=== PATIENT | female | born 1960 | race Caucasian/White ===

== ENCOUNTER → 2021-02-11 | Outpatient (CLI) | payer OTHER ==
--- NOTE | 2021-02-11 09:31 | RAD ---
EXAM: Pelvis and right hip, 3 views; lumbar spine, 2 views. HISTORY: Pain. COMPARISON: None. FINDINGS: Pelvis and right hip: A frontal view the pelvis and frontal and frog-leg views of the right hip are o btained. There is severe right hip joint space narrowing with degenerative subchondral sclerosis, sub chondral cyst formation and marginal femoral head spurring. No cortical collapse is seen. There is a left hip arthroplasty in expected position. There is degenerative subchondral sclerosis involving the sacroiliac joints. Lumbar spine: 2 views of the lumbar spine are obtained. There is instrumented posterior fusion at L5- S1. There is 5 mm grade 1 anterolisthesis at this level. There is a mild chronic appearing compressio n fracture of L2. No retropulsion of the cortex is seen. There is degenerative endplate remodeling wi th disc space narrowing and osteophytosis primarily at L5-S1, and to a lesser extent, L1-L2. There is facet arthropathy at the lower lumbar levels. IMPRESSION: 1. Severe right hip osteoarthritis. 2. Instrumented posterior fusion at L5-S1. There is grade 1 anterolisthesis and advanced degenerative change at this level. 3. Mild chronic appearing compression fracture of L2. 4. Degenerative change throughout the remainder of the lower thoracic and lumbar spine, primarily at L1-L2. 4. Left hip arthroplasty in expected position. Electronically signed by: Kimberly Avery MD (02/11/2021 9:29 AM) [facility]
== END ==
LOC: RAD 07:59
PROVIDERS: ATTEND Family Medicine
DX: Z02.71 Encounter for disability determination (principal); M16.11 Unilateral primary osteoarthritis, right hip; M47.815 Spondylosis without myelopathy or radiculopathy, thoracolumbar region; M43.16 Spondylolisthesis, lumbar region; Z96.642 Presence of left artificial hip joint
CPT/HCPCS: 72100; 73502